=== PATIENT | female | born 2005 | race African-American/Black ===

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

== ENCOUNTER 2024-05-29 13:13 | Outpatient (CLI) | payer BC, SELFPAY | END 2024-05-29 13:14 | disposition home or self-care (01) | LOC: NFLDREF 05-30 03:48 | PROVIDERS: Visit Provider Nurse Practitioner Family | DX: N30.00 Acute cystitis without hematuria (principal); N30.01 Acute cystitis with hematuria | CPT/HCPCS: 87086 ==